=== PATIENT | female | born 1995 | race Caucasian/White ===

== ENCOUNTER 2019-07-18 19:19 | Emergency (ER) | payer OTHER ==
--- NOTE | 2019-07-18 19:47 | ER Document Report ---
ED Medical Screen (RME) - General Chief Complaint: Back Pain Stated Complaint: LOW BACK PAIN,HEADACHE,DIZZINESS Time Seen by Provider: 07/18/19 19:38 Mode of Arrival: Ambulatory Information source: Patient Notes: Otherwise healthy 24-year-old female presenting to the emergency department with bilateral flank pain and concerns for elevated blood pressure. Patient reports her blood pressure has been running in the 140s over the last 1 to 2 weeks. She states no formal diagnosis of hypertension, states that she did have gestational hypertension with a 1 year ago but states it had been resolved since then. She does report she is having a mild headache. Denies any nausea, vomiting, diarrhea, fever, dysuria or abnormal discharge. Exam: Abdomen soft, nontender, no guarding no rebound. I have greeted and performed a rapid initial assessment of this patient. A comprehensive ED assessment and evaluation of the patient, analysis of test results and completion of the medical decision making process will be conducted by additional ED providers. I have specifically instructed the patient or family members with the patient to immediately return to any nursing staff should anything change in the patient's condition or with their chief complaint. Physical Exam - Vital signs Vitals: Temp Pulse Resp BP Pulse Ox 98.4 F 106 H 18 151/85 H 100 07/18/19 19:32 07/18/19 19:32 07/18/19 19:32 07/18/19 19:32 07/18/19 19:32 Course - Vital Signs Vital signs: Temp Pulse Resp BP Pulse Ox 98.4 F 106 H 18 151/85 H 100 07/18/19 19:32 07/18/19 19:32 07/18/19 19:32 07/18/19 19:32 07/18/19 19:32
[2019-07-18 20:03] LABS: ABSOLUTE BASOPHILS # (AUTO) 0.1 10^3/uL (0.0-0.2); ABSOLUTE LYMPHOCYTES (AUTO) 2.8 10^3/uL (0.5-4.7); ABSOLUTE MONOCYTES (AUTO) 0.7 10^3/uL (0.1-1.4); BASOPHILS % (AUTO) 0.4 % (0-2); EOSINOPHILS % (AUTO) 0.3 % (0-6); HEMATOCRIT 41.4 % (36.0-47.0); HEMOGLOBIN 14.5 g/dL (12.0-15.5); LYMPHOCYTES % (AUTO) 20.9 % (13-45); MEAN CORPUSCULAR HEMOGLOBIN 30.1 pg (27.0-33.4); MEAN CORPUSCULAR VOLUME 86 fl (80-97); MONOCYTES % (AUTO) 5.3 % (3-13); PLATELET COUNT 301 10^3/uL (150-450); RED BLOOD COUNT 4.81 10^6/uL (3.72-5.28); RED CELL DISTRIBUTION WIDTH 12.6 % (11.5-14.0); SEGMENTED NEUTROPHILS % (AUTO) 73.1 % (42-78); TOTAL CELLS COUNTED % (AUTO) 100 %; WHITE BLOOD COUNT 13.6 10^3/uL (4.0-10.5)
--- NOTE | 2019-07-18 20:18 | ER Document Report ---
ED General - General Chief Complaint: High Blood Pressure Stated Complaint: LOW BACK PAIN,HEADACHE,DIZZINESS Time Seen by Provider: 07/18/19 19:38 Mode of Arrival: Ambulatory Information source: Patient TRAVEL OUTSIDE OF THE [place] IN LAST 30 DAYS: No - HPI Onset: Other - Developed a headache with some dizziness and nausea in the past 1 to 2 days. Patient has a history of preeclampsia with childbirth 1 year ago. Patient was placed on Procardia for 6 months . Has not been on any blood pressure medicines in the past 7 months. Patient states she also has some bilateral low flank pain. Denies any urination problems but admits to chronic constipation. Patient states she is not at this time. Patient was seen in her primary care doctor yesterday and comes in today because of repeat blood pressure showing that her blood pressure was elevated. Onset/Duration: Gradual Quality of pain: Dull Severity: Mild Similar symptoms previously: Yes Recently seen / treated by doctor: Yes - Related Data Allergies/Adverse Reactions: No Known Allergies Allergy (Verified 07/18/19 20:37) Past Medical History - General Information source: Patient - Social History Smoking Status: Unknown if Ever Smoked Lives with: Family Family History: Reviewed & Not Pertinent Patient has suicidal ideation: No Patient has homicidal ideation: No Physical Exam - Vital signs Vitals: Temp Pulse Resp BP Pulse Ox 98.4 F 106 H 18 151/85 H 100 07/18/19 19:32 07/18/19 19:32 07/18/19 19:32 07/18/19 19:32 07/18/19 19:32 Interpretation: Normal - General General appearance: Appears well, Alert - HEENT Head: Normocephalic, Atraumatic Eyes: Normal Extraocular movements intact: Yes - Noted nystagmus on lateral gaze with strain and movement and dizziness. Pupils: PERRL Tympanic membrane: Bulging, Serous effusion, Other - Pastel pink color Sinus: Frontal, Tenderness - Respiratory Respiratory status: No respiratory distress Chest status: Nontender Breath sounds: Normal Chest palpation: Normal - Cardiovascular Rhythm: Regular Heart sounds: Normal auscultation Murmur: No - Abdominal Inspection: Normal Distension: No distension Bowel sounds: Normal Tenderness: Nontender, Other - No CVA tenderness on kidney punch. Organomegaly: No organomegaly - Back Back: Normal, Nontender - Extremities General upper extremity: Normal inspection, Nontender, Normal color, Normal ROM, Normal temperature General lower extremity: Normal inspection, Nontender, Normal color, Normal ROM, Normal temperature, Normal weight bearing. No: Eduardo's sign - Neurological Neuro grossly intact: Yes Cognition: Normal Orientation: AAOx4 Munson Coma Scale Eye Opening: Spontaneous Munson Coma Scale Verbal: Oriented Norma Coma Scale Motor: Obeys Commands Munson Coma Scale Total: 15 Speech: Normal Motor strength normal: LUE, RUE, LLE, RLE Sensory: Normal - Psychological Associated symptoms: Normal affect, Normal mood - Skin Skin Temperature: Warm Skin Moisture: Dry Skin Color: Normal Course - Re-evaluation Re-evalutation: 07/18/19 21:09 Blood pressure improved since last initial triage assessment. 07/18/19 21:21 Patient has a white blood cell count at 13.6. Laboratories also shows white cells and blood in urine. Patient is not on her menstrual cycle. Patient does complain of bilateral flank pain but not in any significant unilateral pain on either side. Doubt that patient is passing a kidney stone with this presentation. Most likely patient has a urinary tract infection. Urine culture will be sent as well as blood cultures and IV antibiotics have been ordered. 07/18/19 23:30 Patient has completed her IV antibiotic course. States she is feeling better she is currently receiving IV fluids at this point time. Patient reports that her dizziness has improved after the meclizine tablet for labyrinthitis. Patient also reports that she saw her primary care doctor on and was found to have a work-up for bacterial vaginosis but no diagnosis was made. In asmuch as patient shows white cells and red cells in her urine most likely is due from the discharge there was no bacteria seen. Therefore I am going to place patient on Flagyl twice a day for 5 days. 07/18/19 23:31 Patient's blood pressure is normal at this time not showing any evidence of elevation of systolic or diastolic. - Vital Signs Vital signs: Temp Pulse Resp BP Pulse Ox 98.7 F 106 H 20 132/86 H 100 07/18/19 21:59 07/18/19 19:32 07/18/19 21:59 07/18/19 21:59 07/18/19 19:32 - Laboratory Result Diagrams: 07/18/19 19:50 07/18/19 19:50 Laboratory results interpreted by me: 07/18/19 07/18/19 07/18/19 19:50 19:50 19:50 WBC 13.6 H Absolute Neuts (auto) 10.0 H Total Protein 8.3 H Lipase 21.3 L Urine Protein 30 H Urine Ketones TRACE H Urine Blood MODERATE H Ur Leukocyte Esterase LARGE H - Diagnostic Test Radiology reviewed: Image reviewed, Reports reviewed Discharge - Discharge Clinical Impression: Constipation, chronic, Bacterial vaginosis Sinusitis Qualifiers: Sinusitis location: frontal Chronicity: acute Recurrence: not specified as recurrent Qualified Code(s): J01.10 - Acute frontal sinusitis, unspecified Labyrinthitis Qualifiers: Laterality: bilateral Qualified Code(s): H83.03 - Labyrinthitis, bilateral Condition: Stable Disposition: HOME, SELF-CARE Additional Instructions: Vaginitis Your exam shows that you have vaginitis, a vaginal infection. The infection can be caused by a many different organisms, including trichomonas or Gardnerella. The usual symptoms are vaginal irritation and discharge. The treatment is usually antibiotics such as Flagyl. Laboratory tests can determine which germ is responsible. Use the medication as prescribed. Because this infection can be tra nsmitted sexually, your sexual partner may need to be checked and treated also. If your physician has not discussed this with you, please check before resuming sexual relations. If a culture shows gonorrhea or chlamydia, the infection must be reported to the health department. Call the doctor if you develop pelvic pain, fever, or problems with urination, or if you don't improve as expected. Constipation Constipation is a common problem. It is especially likely as you get older. Constipation is a common cause of abdominal pain, but sometimes causes no symptoms at all. Causes of constipation include certain medications, dehydration, diets, inactivity, and low-fiber intake. Rarely, it can be a symptom of underlying disease. The physician has evaluated you for this. Avoid constipation by eating a diet high in fiber, fruits, and vegetables. Drink plenty of liquids. Get regular exercise. If possible, avoid constipating medicines like narcotic pain medication. Some vitamin tablets can cause constipation. Stool softeners may be needed for difficult cases. An excellent stool softener is Konsyl which is available at [employer], [employer] (Chapter 11). Just add a teaspoon to a glass of pineapple or orange juice daily or twice a day if needed. Laxatives are useful for occasional constipation. You should use them only when necessary. Too-frequent use can make your bowels dependent on them. Some over the counter laxatives available without prescription are: Milk of Magnesia, 1-2 tablespoons twice a day Dulcolax, 5 mg pill or 10 mg suppository. Citrate of Magnesia, 4-5 ounces a day for a day or two For acute constipation, Fleet's Enemas and Dulcolax suppositories are helpful. Chronic, tank terminal gauger use of laxatives or enemas is not a good idea. Your bowel may become dependant on them. You do not need to have a bowel movement every day. Many people do fine with a bowel movement every three or four days. You should call your doctor or return for re-evaluation if you pass blood in the stool, or if you develop fever or increasing abdominal pain.Labyrinthitis Labyrinthitis is a temporary disease of the inner ear. It's sometimes called vestibulitis. It often starts a few days after a cold or virus infection. Symptoms include vertigo (the spinning type of dizziness) or a sense of unsteadiness and nausea. The symptoms usually go away in a couple of days without any treatment. You should rest and keep your head still. The dizziness is worse if you move your head. Closing the eyes usually helps. Don't drive, work with dangerous machinery, or get up on ladders or scaffolds until a few days after the dizziness resolves. Medicine such as meclizine (Antivert, Bonine) can reduce the dizziness and nausea. Tranquilizers (such as diazepam) can suppress your sense of balance, reducing the unpleasantness of the vertigo. Call or return if you develop ear pain, loss of hearing, fever, severe vom iting, or any other new symptom. Sinusitis You have sinusitis, an infection of the sinus cavities of the face. The sinuses are air-filled chambers which open into the inside of the nose. Bact eria and pus fill a sinus, causing pain, drainage, and fever. Sinusitis is treated with antibiotics. Often, expectorants (to thin the sinus mucous) or decongestants (to reduce swelling) are prescribed as well. Healing requires seven to 10 days. Avoid chemical fumes, pollens, dusts, and smoke (especially cigarette smoke). Keep the air humidified in your bedroom and work area and take plenty of liquids by mouth. This condition can be serious if the infection spreads. If your symptoms worsen, or if you develop severe headache, high fever, stiff neck, or a rash, you must call the doctor or return for re-evaluation. Prescriptions: Meclizine HCl [Antivert 25 mg Tablet] 25 mg PO TID PRN #30 tablet PRN Reason: Metronidazole [Flagyl 500 mg Tablet] 500 mg PO BID 5 Days #10 tablet
[2019-07-18 20:26] LABS: ALBUMIN 4.7 g/dL (3.5-5.0); ALKALINE PHOSPHATASE 86 U/L (38-126); ANION GAP 13 (5-19); ASPARTATE AMINO TRANSFERASE 22 U/L (14-36); BILIRUBIN,DIRECT 0.2 mg/dL (0.0-0.4); BILIRUBIN,TOTAL 0.5 mg/dL (0.2-1.3); BLOOD UREA NITROGEN 14 mg/dL (7-20); CALCIUM 9.7 mg/dL (8.4-10.2); CARBON DIOXIDE 25 mmol/L (22-30); CHLORIDE 102 mmol/L (98-107); GLUCOSE 87 mg/dL (75-110); POTASSIUM 3.6 mmol/L (3.6-5.0); TOTAL PROTEIN 8.3 g/dL (6.3-8.2)
[2019-07-18 20:32] LABS: APPEARANCE,URINE CLOUDY; BILIRUBIN,URINE NEGATIVE (NEGATIVE); COLOR,URINE YELLOW; GLUCOSE, URINE NEGATIVE (NEGATIVE); KETONES,URINE TRACE mg/dL (NEGATIVE); LEUKOCYTE ESTERASE,URINE LARGE (NEGATIVE); NITRITE,URINE NEGATIVE (NEGATIVE); PROTEIN,URINE 30 mg/dL (NEGATIVE); URINE SPECIFIC GRAVITY 1.023; UROBILINOGEN,URINE NEGATIVE mg/dL (<2.0)
[2019-07-18] MEDS ORDERED: CEFTRIAXONE INJ 1000 MG VIAL IV ONE (21:16)
[2019-07-18] MEDS ORDERED: NORMAL SALINE 500 ML IV ONE (21:18)
[2019-07-18] MEDS ORDERED: KETOROLAC TROMETHAMINE INJ/PF 30 MG/1 ML SDV IV ONE (21:19)
[2019-07-18] MEDS ORDERED: MECLIZINE HCL 25 MG TABLET PO ONE (21:20)
--- NOTE | 2019-07-18 22:05 | RADIOLOGY REPORT (SQ) ---
EXAM DESCRIPTION: XR ABDOMEN SUPINE AND ERECT WITH CHEST (ABD ACUTE SERIES) COMPLETED DATE/TME: 07/18/2019 21:20 CLINICAL HISTORY: 24 years, Female, bilateral flank pain/leukocytosis COMPARISON: None. NUMBER OF VIEWS: 3 TECHNIQUE: Upright chest with supine and erect views of the abdomen LIMITATIONS: None. FINDINGS: Heart size is normal. Lungs are clear. No pneumothorax. No free air under the hemidiaphragms. Nonspecific bowel gas pattern. No free air. Moderate gas and stool in the colon. A few nondilated small bowel air-fluid levels may reflect mild ileus IMPRESSION: No acute cardiopulmonary process. Possible mild ileus copyright 2010 [employer]- All Rights Reserved
[2019-07-19 00:23] VITALS: BP 124/61
== END 2019-07-19 00:22 | disposition home or self-care (01) ==
LOC: ER 19:19
DX: K59.00 Constipation, unspecified (principal); N76.0 Acute vaginitis; B96.89 Other specified bacterial agents as the cause of diseases classified elsewhere; J01.10 Acute frontal sinusitis, unspecified; H83.03 Labyrinthitis, bilateral; R51 Headache; R42 Dizziness and giddiness; R11.0 Nausea; R10.31 Right lower quadrant pain; R10.32 Left lower quadrant pain; Z79.899 Other long term (current) drug therapy
CPT/HCPCS: 99284; 96361; 96374; 36415; 83690; 84703; 85025; 80053; 81001; 74022; J1885; J0696; J7040

== ENCOUNTER 2020-01-01 15:11 | Emergency (ER) | payer OTHER ==
[2020-01-01] MEDS ORDERED: METOCLOPRAMIDE HCL INJ/PF 10 MG/2 ML SDV IV ONE (17:38)
[2020-01-01] MEDS ORDERED: NORMAL SALINE 1000 ML 1,000 ML IV ONE (17:38)
--- NOTE | 2020-01-01 17:42 | ER Document Report ---
ED Medical Screen (RME) - General Chief Complaint: Headache Stated Complaint: HEAD PAIN-RIGHT SIDE NECK UP/HEACHACHE/NAUSEA Time Seen by Provider: 01/01/20 17:37 Notes: Patient is a 24-year-old female who presents to the emergency department with a chief complaint of right neck pain that started 6 days ago and a headache that started 3 days ago. Patient states that she feels nauseous. Denies any vomiting. States that she also has right-sided facial numbness and numbness down to her right shoulder. Denies any injury. Exam: Tenderness noted to right shoulder. I have greeted and performed a rapid initial assessment of this patient. A comprehensive ED assessment and evaluation of the patient, analysis of test results and completion of medical decision making process will be conducted by an additional ED providers. TRAVEL OUTSIDE OF THE [place] IN LAST 30 DAYS: No - Related Data Allergies/Adverse Reactions: No Known Allergies Allergy (Verified 07/18/19 20:37) Past Medical History - Past Medical History Cardiac Medical History: Reports: Hx Hypertension Physical Exam - Vital signs Vitals: Temp Pulse Resp BP Pulse Ox 98.9 F 103 H 16 146/77 H 98 01/01/20 15:54 01/01/20 15:54 01/01/20 15:54 01/01/20 15:54 01/01/20 15:54 Course - Vital Signs Vital signs: Temp Pulse Resp BP Pulse Ox 98.9 F 103 H 16 146/77 H 98 01/01/20 15:54 01/01/20 15:54 01/01/20 15:54 01/01/20 15:54 01/01/20 15:54
[2020-01-01 18:18] LABS: ABSOLUTE LYMPHOCYTES (AUTO) 1.6 10^3/uL (0.5-4.7); ABSOLUTE MONOCYTES (AUTO) 0.5 10^3/uL (0.1-1.4); ABSOLUTE NEUT (AUTO) 6.8 10^3/uL (1.7-8.2); BASOPHILS % (AUTO) 0.5 % (0-2); EOSINOPHILS % (AUTO) 0.1 % (0-6); HEMATOCRIT 40.4 % (36.0-47.0); HEMOGLOBIN 14.3 g/dL (12.0-15.5); LYMPHOCYTES % (AUTO) 17.6 % (13-45); MEAN CORPUSCULAR HEMOGLOBIN 30.5 pg (27.0-33.4); MEAN CORPUSCULAR HGB CONC 35.4 g/dL (32.0-36.0); MEAN CORPUSCULAR VOLUME 86 fl (80-97); MONOCYTES % (AUTO) 5.8 % (3-13); PLATELET COUNT 314 10^3/uL (150-450); RED BLOOD COUNT 4.68 10^6/uL (3.72-5.28); RED CELL DISTRIBUTION WIDTH 12.3 % (11.5-14.0); TOTAL CELLS COUNTED % (AUTO) 100 %; WHITE BLOOD COUNT 8.9 10^3/uL (4.0-10.5)
[2020-01-01 18:27] LABS: INTERNATIONAL RATION (INR) 1.03; PROTHROMBIN TIME 13.5 SEC (11.4-15.4)
[2020-01-01 18:29] LABS: ALBUMIN 4.3 g/dL (3.5-5.0); ALKALINE PHOSPHATASE 84 U/L (38-126); ANION GAP 6 (5-19); ASPARTATE AMINO TRANSFERASE 20 U/L (14-36); BILIRUBIN,TOTAL 0.2 mg/dL (0.2-1.3); BLOOD UREA NITROGEN 8 mg/dL (7-20); CALCIUM 9.5 mg/dL (8.4-10.2); CARBON DIOXIDE 25 mmol/L (22-30); CHLORIDE 107 mmol/L (98-107); GLUCOSE 94 mg/dL (75-110); POTASSIUM 4.1 mmol/L (3.6-5.0); TOTAL PROTEIN 7.8 g/dL (6.3-8.2)
[2020-01-01] MEDS ORDERED: METHOCARBAMOL 500 MG TABLET PO ONE (21:44)
--- NOTE | 2020-01-01 21:47 | ER Document Report ---
ED Headache - General Chief Complaint: Headache Stated Complaint: HEAD PAIN-RIGHT SIDE NECK UP/HEACHACHE/NAUSEA Time Seen by Provider: 01/01/20 17:37 Notes: Patient is a 24-year-old female who presents to the emergency department with a chief complaint of right neck pain that started 6 days ago and a headache that started 3 days ago. Patient states that she feels nauseous. Denies any vomiting. States that she also has right-sided facial numbness and numbness down to her right shoulder. Denies any injury. TRAVEL OUTSIDE OF THE [place] IN LAST 30 DAYS: No - Related Data Allergies/Adverse Reactions: No Known Allergies Allergy (Verified 07/18/19 20:37) Past Medical History - General Information source: Patient - Social History Smoking Status: Unknown if Ever Smoked Family History: Reviewed & Not Pertinent - Past Medical History Cardiac Medical History: Reports: Hx Hypertension Review of Systems - Review of Systems Notes: REVIEW OF SYSTEMS: CONSTITUTIONAL : Denies recent illness. Denies recent unintentional weight loss. Denies fever, chills, or sweats. EENT: Denies eye, ear, throat, or mouth pain, discharge, or symptoms. Denies nasal or sinus congestion. CARDIOVASCULAR: Denies chest pain. RESPIRATORY: Denies shortness of breath, cough, congestion, difficulty breathing, or wheezing. GASTROINTESTINAL: Denies nausea, vomiting, and diarrhea. Denies abdominal pain. Denies constipation. GENITOURINARY: Denies difficulty urinating, burning, blood in urine, urgency or frequency. MUSCULOSKELETAL: Denies neck and back pain. Denies joint pain or swelling. SKIN: Denies rash, itchiness, or lesions HEMATOLOGIC : Denies easy bruising or bleeding. LYMPHATIC: Denies swollen, painful, enlarged glands. NEUROLOGICAL: See HPI. PSYCHIATRIC: Denies stress, anxiety, alteration in sleep patterns, or depression. All other systems reviewed and negative. Physical Exam - Vital signs Vitals: Temp Pulse Resp BP Pulse Ox 98.9 F 103 H 16 146/77 H 98 01/01/20 15:54 01/01/20 15:54 01/01/20 15:54 01/01/20 15:54 01/01/20 15:54 - Notes Notes: PHYSICAL EXAMINATION: GENERAL: Appears well, healthy, well-nourished, no acute distress. HEAD: Normocephalic, atraumatic. EYES: PERRL, conjunctiva normal, all extraocular movements intact, sclera nonicteric ENT: Moist mucous membranes. NECK: Supple, no noticeable swelling, redness, rash. Normal range of motion. Redness noted to right lateral neck LUNGS: Equal breath sounds bilaterally and clear to auscultation. No wheezes ra les or rhonchi. CARDIOVASCULAR: S1-S2, regular rate, regular rhythm. Radial pulses 2+, normal. EXTREMITIES: Normal strength and range of motion, no pitting or edema. No cyanosis. NEUROLOGICAL: Moves all extremities upon command. Strength 5/5 in all extremities. Cranial nerves II through X intact. PSYCH: Normal mood, normal affect. SKIN: Warm, dry. No rash, lesions, ulcerations noted. Normal skin turgor. Course - Re-evaluation Re-evalutation: 01/01/20 21:46 Hematology, coagulation studies, and chemistries are unremarkable. Patient has no neurological deficits noted. I suspect patient's numbness in her right arm is due to a pinched nerve in her neck. Her numbness stops at the top of her shoulder. We will start her on Robaxin. We will also start her on Reglan. Follow-up precautions were given. Verbal discharge instructions were given to the patient. They verbalized understanding. They are stable for discharge. - Vital Signs Vital signs: Temp Pulse Resp BP Pulse Ox 98.5 F 87 16 130/87 H 100 01/01/20 22:28 01/01/20 22:28 01/01/20 22:28 01/01/20 22:28 01/01/20 22:28 - Laboratory Result Diagrams: 01/01/20 18:00 01/01/20 18:00 Discharge - Discharge Clinical Impression: Neck pain on right side Headache Qualifiers: Headache type: unspecified Headache chronicity pattern: acute headache Intractability: not intractable Qualified Code(s): R51 - Headache Condition: Stable Disposition: HOME, SELF-CARE Additional Instructions: You were seen today in the emergency department for neck pain. Please follow-up with your primary care provider. You are being started on Robaxin. This is a muscle relaxer to help with your neck pain. See if you can go to physical therapy. Prescriptions: Metoclopramide HCl [Reglan 10 mg Tablet] 1 - 2 tab PO ASDIR PRN #25 tablet PRN Reason: Methocarbamol [Robaxin 750 mg Tablet] 750 mg PO ASDIR PRN #40 tablet PRN Reason:
[2020-01-01 22:28] VITALS: BP 130/87
== END 2020-01-01 22:28 | disposition home or self-care (01) ==
LOC: ER 15:11
DX: M54.2 Cervicalgia (principal); R51 Headache; R11.0 Nausea; I10 Essential (primary) hypertension
CPT/HCPCS: 36415; 80053; 85025; 85610; 85730; 99283